=== PATIENT | male | born 1975 | race Caucasian/White ===

== ENCOUNTER 2022-03-16 09:55 | Emergency (ER) | payer OTHER, SELFPAY ==
--- NOTE | ~2022-03-16 | MR_ITS ---
EXAMINATION: MR BRAIN WITHOUT CONTRAST CLINICAL INFORMATION: Visual changes. Question stroke. COMPARISON: Head CTA performed earlier today. TECHNIQUE: Multiplanar, multisequence imaging of the brain was performed without intravenous contrast. FINDINGS: There is no acute infarction, mass, hemorrhage, or extra-axial collection. The ventricles, sulci, and basilar cisterns are normal in size and configuration. There is a small chronic infarct within the left occipital lobe seen on series 5 image 03/27. The brain parenchyma signal otherwise appears normal. The orbital contents appear normal. No compressive orbital lesion is seen. The flow voids of the major intracranial arteries appear intact. The bones and extracranial soft tissues are unremarkable. Lobular mucosal thickening is seen within the left maxillary sinus. MR/MR head/brain wo con IMPRESSION: No acute infarct, mass lesion, intracranial hemorrhage, or evidence of hydrocephalus. 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
--- NOTE | ~2022-03-16 | CT_ITS ---
EXAMINATION: CT ANGIOGRAM NECK WITH CONTRAST CT ANGIOGRAM BRAIN WITH CONTRAST CLINICAL INFORMATION: Visual changes. COMPARISON: None. TECHNIQUE: Test bolus sequences followed by intravenous administration 70 mL of Omnipaque 350. Helical imaging was performed in the axial plane from the thoracic inlet to the skull vertex. Delayed postcontrast imaging of the head was also performed. The data was processed at the radiology ct technologist workstation for generation of MIP sequences. Angled MIPs and volume rendered reformatted images were also generated at an offline 3D workstation. Stenoses are assessed in accordance with NASCET criteria unless otherwise indicated. This CT examination was performed using dose optimization techniques as appropriate, variously including the following: *Automated exposure control *Adjustment of mA and/or kV according to patient size (this includes techniques or standardized protocols for targeted exams where dose is matched to indication/reason for exam; i.e. extremities or head) *Use of iterative reconstruction technique DLP: 2456 mGy-cm FINDINGS: Head CT: There is no intracranial hemorrhage, large acute infarction, or mass lesion. The ventricles are normal in size and configuration without evidence of hydrocephalus. No abnormal enhancement is seen on the postcontrast images. The dural venous sinuses are normally opacified. The visualized paranasal sinuses and mastoid air cells are clear. Neck CTA: There is a normal aortic arch with no significant stenosis of the great vessel origins. The common and internal carotid arteries are normal in course and caliber. Both vertebral arteries are widely patent throughout their extracranial cervical course. Head CTA: No large vessel occlusion is seen. The anterior and posterior circulations are patent. There is no stenosis or occlusion. No aneurysm is seen. Non-vascular findings: The cervical soft tissues are within normal limits. 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 No enlarged lymph nodes are seen. The cervical spine is intact. The upper lungs are clear. CT/CT angio head neck IMPRESSION: No acute infarction, hemorrhage, or mass effect. Major head and neck arteries are patent without stenosis or occlusion. This critical result was discussed with Raquel JOHNSON on 03/16/2022 5:38 PM, and it was ascertained that the content and urgency of the report was understood at the time of direct communication.
[2022-03-16 10:15] VITALS: BP 144/86; PULSE 60; RESP 16; TEMP 36.8; O2SAT 99; BMI 34.4
--- NOTE | 2022-03-16 15:00 | ED.EYEPROB ---
HPI - Eye Problem General Chief complaint: Eye Problems Stated complaint: L Eye Vision Problems Time Seen by Provider: 03/16/22 14:43 Source: patient Mode of arrival: ambulatory Limitations: no limitations History of Present Illness HPI Narrative: 46yoM c PMHx of Gilbert's disease who presents to the ED today with visual changes. He reports no problems up until this past Tuesday morning when he woke and noticed bilateral blurry vision and rotation of viewed images when he performs a left gaze. He reports this change in only when he looks to his left with both eyes and reports normal vision with unilateral eye gaze. He was seen at an urgent care today who referred him to an eye doctor affiliated with [facility]. He then went to the eye doctor who referred him here for CTA of head to r/o aneurysm and CVA. He denies any head injury, LOC, dizziness, lightheadedness, vision loss, eye trauma, hearing changes/loss, muscle weakness, recent illness, recent travel, past hx of CVA, past hx of vision problems. MD chief complaint: vision change Onset (ago): day(s) (3) Onset description: awoke with symptoms Duration: constant Location: left eye Mechanism: none Associated symptoms: none Treatments Prior to Arrival: none Related Data Allergies Allergy/AdvReac Type Severity Reaction Status Date / Time No Known Allergies Allergy Verified 03/16/22 14:44 Review of Systems Review of Systems: Constitutional : No fevers, no chills, No changes in activity, No lethargy, No recent prior head injury, No agitation, No increased fussiness ENT/Mouth : No Ear Pain, No Nasal discharge/drainage Eyes: + Vision changes, +blurry vision, No Eye Pain, No Swelling, No Redness, No Foreign Body, No Photophobia, no discharge, no drainage, no itching, no eyelid edema, no contact lens uses, no recent welding, no bleeding Cardiovascular : No Chest Pain, No SOB Respiratory : No Cough Gastrointestinal : No Nausea, No Vomiting, No abdominal Pain Genitourinary : No Dysuria, No Urinary Frequency, No Urinary Incontinence, No Urgency, No Flank Pain Musculoskeletal : No joint pain, No neck stiffness, No back pain/injury Skin : No lacerations Neuro : No unsteady gait, No Paresthesias, No Loss of Consciousness, No altered mental status, No dizziness, No Headache Denies past medical history of HIV, recent trauma, coagulopathy, recent spinal/ epidural procedure, new medication, URI symptoms, close contacts with similar symptoms, tick bite, or known CO2 exposure. Yes all other systems are reviewed and are negative [facility] Past Medical History Attestation statement: The following information was validated with the patient. Source: old records reviewed, obtained from family and nursing notes reviewed Social History Social History Advance Directives: No Physical Exam Vital Signs: Vital Signs: Last Vital Signs Temp 98.2 F 03/16/22 10:15 Pulse 59 03/16/22 16:16 Resp 18 03/16/22 16:16 BP 138/76 03/16/22 16:16 Pulse Ox 99 03/16/22 16:16 O2 Del Method 03/16/22 16:16 BMI result Body Mass Index 34.4 vital signs have been reviewed as normal and appeared to be correct. Blood pressure 144/86. Heart rate normal. Respiration rate normal. Temperature normal. Oxygen saturation normal. Appearance: Alert. Oriented X3. No acute distress. Head: Normal external exam. Normocephalic. Atraumatic. No Ocampo signs noted. No raccoon eyes noted Eyes: PERRLA. EOMI. Very mild horizontal nystagmus noted during left gaze. Conjunctiva are normal. Cornea are normal. Funduscopic exam within normal limits. Sclera normal. Eyelids normal. No papilledema noted. Anterior chamber normal. No photophobia noted. Visual acuity bilaterally 20/10. Visual acuity to right eye 20/10. Visual acuity to left eye 20/13. ENT: EAC normal. TM's Normal. Pharynx normal. Uvula midline. Moist mucous membranes. Neck: Normal inspection. Neck supple. FROM. No adenopathy. Thyroid Normal. No meningeal signs. No neck mass noted. CVS: Normal heart rate and rhythm. Heart sound normal. No murmurs noted. Pulses normal throughout. Respiratory: No respiratory distress. Painless inspiration. Breath sounds normal. Back: Full range of motion noted. Skin: Skin warm and dry. Normal skin color. Normal skin turgor. No rashes/lesions/lacerations noted. Extremities: No lower extremity edema. Extremities exhibit normal range of motion. Extremities nontender. Neuro: Oriented X 3. No motor deficit. No sensory deficit. Reflexes normal. Moving all extremities. No focal motor deficits. Cranial nerves II-XI intact bilaterally. Facial strength normal. Normal cognition. Speech normal. Gait normal. Strength 5/5 throughout. No pronator drift. No tremor noted. No fasciculations noted. No rigidity noted. Muscle tone normal throughout. No asterixis noted. Nwgwzk-oz-vupv test normal. Heel to harmon test normal. Tandem gait normal. Does not sway with eyes open. Romberg test negative. Rapid alternating movement upper extremity normal. Rapid alternating movement lower extremity normal. Hand drop from overhead Misses face. NIHSS score 0. Course Course Course Narrative: 14:45pm - 46yoM c PMHx of Gilbert's disease who is presents to the ED today with visual changes that started Tuesday. Very mild horizontal nystagmus noted during left gaze, otherwise neuro exam unremarkable. Vision acuity and mcwilliams WNL. At this time patient has non disabling symptoms and his symptoms started on Tuesday 3 days ago. Not a tPA candidate Plan: Labs, CT head and CTA head/neck ordered to r/o CVA, ocular involvement. Then re-evaluate. Reevaluation(s) Reevaluation #1: - labs reviewed and patient's total bilirubin 3.0. AST 39. ALT 64. He reports that this is chronic for him due to his Gilbert's disease. - therefore I discussed this case with Neurology they reported that the patient most likely will need an MRI. I tried to call Dr. Vargas the cutter operator helper although I did not get an answer. - therefore I ordered an MRI at this time. - Sign out to JOYA Sanchez pending MRI of Brain. Time: 18:50 Medications Administered Discontinued Medications Generic Name Dose Route Start Last Admin Trade Name Freq PRN Reason Stop Dose Admin Iohexol 100 ml 03/16/22 17:07 03/16/22 17:07 Iohexol 350 Mg/Ml 100 Ml Infus..Btl IV 03/16/22 17:08 70 ml ONCE ONE Administration MDM - Eye Problem Medical Records Attestation: I reviewed the patient's medical records. Lab Data Attestation: I reviewed the patient's lab results. Result diagrams: 03/16/22 15:21 03/16/22 15:21 Labs: Lab Results 03/16/22 03/16/22 03/16/22 Range/Units 15:10 15:21 15:21 WBC 8.1 (4.8-10.8) X10*3/uL RBC 6.07 H (4.60-5.80) X10*6/uL Hgb 16.7 (14.0-18.0) g/dl Hct 50.3 (42.0-52.0) % MCV 82.9 (80.0-98.0) fL MCH 27.5 (27.0-33.0) pg MCHC 33.2 (31.0-36.0) g/dl RDW 12.4 (11.0-16.0) % Plt Count 280 (160-400) X10*3/uL MPV 9.8 (9.4-12.4) fL Immature Gran % (Auto) 0.4 (0.0-0.4) % Neut % (Auto) 74.8 H (45-73) % Lymph % (Auto) 17.4 L (20-40) % Mcculloch % (Auto) 6.5 (2-11) % Eos % (Auto) 0.5 (0-4) % Baso % (Auto) 0.4 (0-2) % Lymph # (Auto) 1.4 (1.2-4.9) X10*3/uL Mcculloch # (Auto) 0.5 (0.1-1.2) X10*3/uL Eos # (Auto) 0.0 (0.0-0.4) X10*3/uL Baso # (Auto) 0.0 (0.0-0.2) X10*3/uL Abs Immat Gran (auto) 0.03 (0.00-0.03) X10*3/uL Absolute Neuts (auto) 6.1 (2.0-8.3) x10*3/uL Absolute Nucleated RBC 0.000 (0.0-0.012) X10*3/uL Nucleated RBC % (auto) 0.0 (0.0-0.2) /100WBC PT 11.6 (10.0-13.1) SEC INR 1.0 (0.9-1.1) Sodium 142 (135-145) mmol/L Potassium 4.1 (3.3-5.1) mmol/L Chloride 105 (96-108) mmol/L Carbon Dioxide 26 (22-29) mmol/L Anion Gap 15 (12-20) BUN 9 (9-16) mg/dL Creatinine 1.04 (0.5-1.4) mg/dL Estim Creat Clear Calc 124.2 Estimated GFR > 60 Random Glucose 99 (60-115) mg/dL Calcium 10.0 (8.4-10.2) mg/dL Magnesium 2.1 (1.6-2.6) mg/dL Total Bilirubin 3.0 H (0.0-1.0) mg/dL AST 39 H (5-37) U/L ALT 64 H (0-40) U/L Alkaline Phosphatase 45 (39-117) U/L Total Protein 7.6 (6.5-8.0) g/dL Albumin 4.7 (3.5-5.0) g/dL Imaging Data CTA of head and neck: Attestation: I personally reviewed and interpreted this imaging study as follows: Radiologist's impression: FINDINGS: Head CT: There is no intracranial hemorrhage, large acute infarction, or mass lesion. The ventricles are normal in size and configuration without evidence of hydrocephalus. No abnormal enhancement is seen on the postcontrast images. The dural venous sinuses are normally opacified. ? The visualized paranasal sinuses and mastoid air cells are clear. Neck CTA: There is a normal aortic arch with no significant stenosis of the great vessel origins. The common and internal carotid arteries are normal in course and caliber. Both vertebral arteries are widely patent throughout their extracranial cervical course. Head CTA: No large vessel occlusion is seen. The anterior and posterior circulations are patent. There is no stenosis or occlusion. No aneurysm is seen. Non-vascular findings: The cervical soft tissues are within normal limits. 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 No enlarged lymph nodes are seen. The cervical spine is intact. The upper lungs are clear. CT/CT angio head neck IMPRESSION: No acute infarction, hemorrhage, or mass effect. Major head and neck arteries are patent without stenosis or occlusion. This critical result was discussed with Raquel JOHNSON on 03/16/2022 5:38 PM, and it was ascertained that the content and urgency of the report was understood at the time of direct communication. Critical Care Time Critical Care Time Critical Care Time: Yes Total Critical Care Time: 60 Attestation: I personally attest to this time spent taking care of the patient Discharge Plan Discharge Clinical Impression: Vision changes Patient Disposition: Still a Patient Instructions: Blurred Vision (ED) Referrals: Abdiaziz Vargas [Physician] - 1 day (as scheduled ) Troy Wood MD [Primary Care Provider] - 1 day
[2022-03-16 15:27] LABS: MANUAL DIFF FLAG NO
[2022-03-16 15:28] LABS: Basophils Percent Auto 0.4 % (0-2); Eosinophils Percent Auto 0.5 % (0-4); Hematocrit 50.3 % (42.0-52.0); Hemoglobin 16.7 g/dl (14.0-18.0); Imm Gran Abs Auto 0.03 X10*3/uL (0.00-0.03); Imm Gran Pct Auto 0.4 % (0.0-0.4); Lymphocytes Absolute Auto 1.4 X10*3/uL (1.2-4.9); Lymphocytes Percent Auto 17.4 % (20-40); Mean Corpuscular HGB Conc 33.2 g/dl (31.0-36.0); Mean Corpuscular Hemoglobin 27.5 pg (27.0-33.0); Mean Corpuscular Volume 82.9 fL (80.0-98.0); Mean Platelet Volume 9.8 fL (9.4-12.4); Monocytes Absolute Auto 0.5 X10*3/uL (0.1-1.2); Monocytes Percent Auto 6.5 % (2-11); Neutrophils Absolute Auto 6.1 x10*3/uL (2.0-8.3); Neutrophils Percent Auto 74.8 % (45-73); Platelet Count 280 X10*3/uL (160-400); Red Blood Count 6.07 X10*6/uL (4.60-5.80); Red Cell Distribution Width 12.4 % (11.0-16.0); White Blood Count 8.1 X10*3/uL (4.8-10.8)
[2022-03-16 15:29] LABS: Prothrombin Time 11.6 SEC (10.0-13.1)
[2022-03-16 15:45] LABS: Alanine Aminotransferase 64 U/L (0-40); Albumin Level 4.7 g/dL (3.5-5.0); Alkaline Phosphatase 45 U/L (39-117); Anion Gap 15 (12-20); Aspartate Amino Transferase 39 U/L (5-37); Blood Urea Nitrogen 9 mg/dL (9-16); Carbon Dioxide 26 mmol/L (22-29); Chloride 105 mmol/L (96-108); Creatinine Clr Calc Pharmacy 124.2; Estimated Glomerular Filt Rate > 60; Glucose Random 99 mg/dL (60-115); Magnesium 2.1 mg/dL (1.6-2.6); Potassium 4.1 mmol/L (3.3-5.1); Sodium 142 mmol/L (135-145); Total Protein 7.6 g/dL (6.5-8.0)
[2022-03-16 16:16] VITALS: BP 138/76; PULSE 59; RESP 18; O2SAT 99
[2022-03-16] MEDS: iohexoL 350 MG/ML 100 ML INFUS..BTL IV (17:07)
== END 2022-03-16 21:15 | disposition home or self-care (01) ==
PROVIDERS: Physician Assistant Medical; Emergency Provider Emergency Medicine Emergency Medical Services; PCP Internal Medicine
DX: H53.8 Other visual disturbances (principal); R42 Dizziness and giddiness; R51.9 Headache, unspecified; Z79.899 Other long term (current) drug therapy
CPT/HCPCS: 36415; 70496; 70498; 70551; 80053; 83735; 85025; 85610; 99284; 99285; Q9967

== ENCOUNTER 2022-03-17 15:34 | Outpatient (REF) | payer OTHER, SELFPAY ==
[2022-03-23 16:35] LABS: Acetylcholine Recep Modulating 16
[2022-03-23 19:02] LABS: Acetylcholine Receptor Binding <0.30 nmol/L
[2022-03-26 15:17] LABS: Acetylcholine Recept. Blocking <15 (<15)
== END 2022-03-17 15:35 | disposition home or self-care (01) ==
LOC: HO.LAB 15:34
PROVIDERS: PCP Internal Medicine; Visit Provider Psychiatry & Neurology Neurology
DX: H53.2 Diplopia (principal)
CPT/HCPCS: 36415; 83519

== ENCOUNTER 2025-03-09 10:20 | Emergency (ER) | payer OTHER, SELFPAY ==
--- NOTE | ~2025-03-09 | XR_ITS ---
CLINICAL HISTORY: pain after lifting a heavy object 3 views right elbow Comparison: None Findings: No fractures, subluxations or dislocations. Fat pads are nondisplaced. Minimal spurring medial humeral epicondyle Bone mineralization and soft tissues within normal limits. No radiopaque foreign body. Impression: 1. No fractures, subluxations, dislocations or evidence of joint effusion right elbow. This document has been electronically signed by: Igor Mckeon MD on 03/09/2025 11:13:28
[2025-03-09 10:28] VITALS: BP 123/83; PULSE 77; RESP 18; TEMP 36.9; O2SAT 95; BMI 33.4
[2025-03-09 10:29] VITALS: PULSE 76; O2SAT 97
--- OUTSIDE RECORDS SUMMARY | 2025-03-09 10:43 | XMS_ITS | Clinical Summary ---
Author Organization [facility] Address [address] [place] [address] Phone Care Team Providers Care Film Splicer Name Role Phone Troy Wood MD Primary Care Provider [phone] Allergies No known active allergies Medications ibuprofen (ADVIL,MOTRIN) 600 mg tablet Take 1 tablet (600 mg total) by mouth 3 (three) times a day. 60 each 04/06/2024 Active oxyCODONE (OXY-IR) 5 mg immediate release capsule Take 1 capsule (5 mg total) by mouth every 6 (six) hours if needed for severe pain. 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 Abdiaziz Mobley. Pt referred to neurology for suspected stroke. Note to our office to check homocystine hypertension, viscosity, collagen vascular disease Gilbert syndrome 08/01/2009 Immunizations Immunization Administration Dates Next Due Td Tetanus diptheria (Tdvax) 7yo and older 09/24 Td, Unspecified 09/24/2004 Tdap Tetanus diptheria acell ular pertussis (Boostrix; Adacel) 7yo and older 07/06/2022,01/12/2011 Surgical History Surgery Date Site/Laterality Comments TONSILLECTOMY PROCEDURE: HISTORICAL TONSILLECTOMY VASECTOMY PROCEDURE: DE VASECTOMY UNI/BI SPX W/POSTOP SEMEN EXAMS; COMMENT: june, WISDOM TOOTH EXTRACTION Medical History Medical History Date Comments 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; COMMENT: asymptomatic unconjugated hyperbilirubinemia Family History Relation Name Status Comments Brother Alive Healthy Daughter Alive x2 - Healthy Father Alive Healthy Mother Alive Hypothyroidism Sister Alive x2 - Healthy Social History Tobacco Use Types Packs/Day Years Used Date Smoking Tobacco: Never Smokeless Tobacco: Never Tobacco Cessation:Counseling Given: Not Answered Alcohol Use Standard Drinks/Week Comments Yes 0 (1 standard drink = 0.6 oz pur e alcohol) Interpersonal Safety Answer Date Record ed Physical Abuse Unrecognized value 04/06/2024 Verbal Abuse Unrecognized value 04/06/2024 Sex and Gender Information Value Date Recorded Sex Assigned at Male 04/06/2024 11:21 AM EST Legal Sex Male 3:26 PM EST Gender Identity Male 04/06/2024 11:21 AM EST Sexual Orientation Straight 04/06/2024 11 :21 AM EST Obstetrics History Last Filed Vital Signs Vital Sign Reading Time Taken Comments Blood Pressure 122/72 05/29/2024 2:43 PM EST Pulse 67 05/29/2024 2:43 PM EST Temperature 36.4 C (97.5 F) 04/23/2024 9:53 AM EST Respiratory Rate 18 04/06/2024 4:19 PM EST Oxygen Saturation 98% 04/06/2024 4:19 PM EST Inhaled Oxygen Concentration - - Weight 123 kg (271 lb 12.8 oz) 05/29/2024 2:43 P M EST Height 188 cm (6' 2 ) 05/29/2024 2:43 PM EST Body Mass Index 34.9 05/29/2024 2:43 PM EST Plan of Treatment Upcoming Encounters Date Type Department Care Team (Late st Contact Info) Description 06/27/2025 9:00 AM EST Office Visit Adult Medicine [facility] [address], [place] [phone] Troy Wood MD [address] [place] [address] Health Maintenance Due Date Last Done Comments Colorectal Cancer Screening: Colonoscopy 1976 Hepatitis B Vaccines (1 of 3 - 19+ 3-dose series) 08/07/1995 HIV Screening 07/25/2022 Social Influencers of Health Screening 07/25/2022 Depression Screening 05/02/2024 COVID-19 Vaccine ( - 2023- season) 2024 Influenza Vaccine (#1) 2024 Cholesterol Screening (Lipid Panel) 01/31/2029 02/01/2024, 02/01/2024 DTaP,Tdap,and Td Vaccines (5 - Td or Tdap) 07/06/2032 07/06/2022, 01/12/2011, 09/24/2004, Additional history exists RSV Immunization Adult Patients (1 - 1-dose 75+ series) 08/07/2051 Hepatitis C Screening Completed 07/08/2022 HIB Vaccines Aged Out No longer eligi ble based on patient's age to complete this topic HPV Vaccines Aged Out No longer eligi ble based on patient's age to complete this topic Hepatitis A Vaccines Aged Out No long er eligible based on patient's age to complete this topic IPV Vaccines Aged Out No longer eligi ble based on patient's age to complete this topic MMR Vaccines Aged Out No longer eligi ble based on patient's age to complete this topic Meningococcal ACWY Vaccine Aged Out N o longer eligible based on patient's age to complete this topic Meningococcal B Vaccine Aged Out No l onger eligible based on patient's age to complete this topic Pneumococcal Vaccine: Pediatrics (0 to 5 Years) and At-Risk Patients (6 to 49 Years) Aged Out No longer eligible based on patient's age to complete this topic RSV Immunization Patients Under 20 months Aged Out No longer eligible based on patient's age to complete this topic Varicella Vaccines Aged Out No longer eligible based on patient's age to complete this topic Procedures Procedure Name Priority Date/Time Associated Diagnosis Comments LIPID PANEL Routine 02/01/2024 HEPATITIS C SCREENING Routine 07/08/2022 from Last 3 Months or Most Recently Relevant to Health Maintenance Results * Lipid panel (02/01/2024) LDL/HDL Ratio 3 0 - 4 Triglycerides 93 0 - 150 mg/dL Cholesterol 172 0 - 200 mg/dL HDL 58 >=40 mg/dL LDL Cholesterol 96 0 - 100 mg/dL Blood Venous blood specimen / Unknown Historical Provider LAB BLOOD ORDERABLES Lucy l Result * Hepatitis C Screening (07/08/2022) Hepatitis C Screening abstracted Historical Provider HEALTH MAINTENANCE Final Result from Last 3 Months or Most Recently Relevant to Health Maintenance Insurance [phone] (Work) [address] [place] [id number] [employer] [facility] [employer] Care Teams Film Splicer Relationship Specialty Start Date End Date Troy Wood MD [address] [facility] [place] [id number] PCP - General 03/01/1999
--- OUTSIDE RECORDS SUMMARY | 2025-03-09 10:43 | XMS_ITS ---
Author Name [facility] Organization Unknown Care Team Organization Name Specialty Phone Email Start Date End Da te [facility] Parag Card Primary Care 09/06/202212/18
--- NOTE | 2025-03-09 11:23 | ED_ITS ---
HPI - Extremity Problem General Chief complaint: Extremity Injury, Upper Stated complaint: R ELBOW INJURY Time Seen by Provider: 03/09/25 10:29 Source: patient, EMS and RN notes reviewed Mode of arrival: EMS Limitations: no limitations History of Present Illness ED Provider: JOYA Lan HPI Narrative: 49-year-old male without significant medical history presents to the ED due to right elbow pain. Patient states he was at work when he was pulling a heavy metal fan off of a truck when he felt a sudden sharp stabbing pain to the lateral side of the right elbow, with numbness and tingling of the 4th and 5th thing fingers that lasted a few minutes before resolving. Patient states after the injury, he tried to grab his walker pants and boots from his truck but felt pain and weakness of the lateral side of the elbow when doing so. Patient states he took 2 Aleve after the injury without effect. Related Data Previous Rx's ?Medication ?Instructions ?Recorded aspirin 81 mg capsule 81 mg PO DAILY 14 days #14 c aps 03/16/22 Allergies Allergy/AdvReac Type Severity Reaction Status Date / Time No Known Allergies Allergy Verified 03/09/25 10:31 Review of Systems Review of Systems: CONST: Negative for fever, body aches and chills. HENT: Negative for neck pain/stiffness, headache, congestion, sore throat, swelling. EYES: Negative for discharge/pain or vision changes. RESP: Negative for cough/hemoptysis and shortness of breath. CV: Negative chest pain, difficulty breathing, palpitations. ABD: Negative pain, nausea, vomiting. : Negative increase frequency, dysuria, blood in urine or stool. MUSC: Negative for muscle aches, edema. POS R elbow pain SKIN: Negative rash, lesions/sores. NEURO: Negative headache, dizziness, weakness. Yes all other systems are reviewed and are negative Physical Exam Vital Signs: Vital Signs: Last Vital Signs Temp 98.5 F 03/09/25 12:23 Pulse 77 03/09/25 12:23 Resp 18 03/09/25 12:23 BP 123/83 03/09/25 12:23 Pulse Ox 95 03/09/25 12:23 O2 Del Method Room Air 03/09/25 12:23 BMI result Body Mass Index 33.4 GENERAL APPEARANCE: ?AxOx4, generally well-appearing, no acute distress. HEENT: ?NC, AT. MMM. EOMI, clear conjunctiva, oropharynx clear. NECK: ?Supple without lymphadenopathy.? No stiffness or restricted ROM. HEART:? Normal rate and regular rhythm, normal S1/S2, no m/r/g LUNGS:? CTAB, moving air well. No crackles or wheezes are heard. EXTREMITIES: ?Without cyanosis, clubbing or edema. R elbow TTP of the radial aspect, radial pulses 2+, full ROM intact, patient able to fully flex and extend the wrist and elbow, opposition intact, SILT, compartments soft, no ecchymosis or overlying skin changes, no rashes, strength 5/5 NEUROLOGICAL: ?Grossly nonfocal. Alert and oriented, moving all 4 extremities. Observed to ambulate with normal gait. Skin: ?Warm and dry without any rash. Medications Administered Discontinued Medications Generic Name Dose Route Start Last Admin Trade Name Freq PRN Reason Stop Dose Admin Acetaminophen 975 mg 03/09/25 11:51 03/09/25 12:12 Acetaminophen 325 Mg Tablet PO 03/09/25 11:52 975 mg ONCE ONE Administration Medical Decision Making Medical Decision Making MDM Narrative: 49-year-old male without significant medical history presents to the ED due to right elbow pain. Patient states he was at work when he was pulling a heavy metal fan off of a truck when he felt a sudden sharp stabbing pain to the lateral side of the right elbow, with numbness and tingling of the 4th and 5th fingers that lasted a few minutes before resolving. Patient states after the injury, he tried to grab his walker pants and boots from his truck but felt pain and weakness of the lateral side of the elbow when doing so. Patient states he took 2 Aleve after the injury without effect. VS on initial observation-BP 123/83, pulse rate is 77, respiratory rate of 18, afebrile with oral temp of 98.5?, O2 saturation 95% on room air. On physical exam R elbow TTP of the lateral aspect, radial pulses 2+, full ROM intact, patient able to fully flex and extend the wrist and elbow, opposition intact, SILT, compartments soft, no ecchymosis or overlying skin changes, no rashes, strength 5/5, neurologically intact, no evidence of wrist drop. XR R elbow negative for fracture, dislocation or large joint effusion. Full ROM intact including opposition, flexion, extension of wrist and elbow, SILT, radial pulses 2+, appropriate capillary refill time, numbness and tingling has resolved, no evidence of wrist drop. Patient was medicated with 975 mg p.o. Tylenol, and Kodak bandage applied onto the right elbow. I counseled patient PARK treatment and placed referral to orthopedics for further evaluation and management if pain continues. I also counseled patient to follow up with his primary care provider and on strict return precautions. Patient in agreement with the plan. Differential Diagnosis Differential Diagnoses: The differential diagnosis associated with the presentation includes Compartment syndrome Olecranon fracture Radial head fracture Ulnar nerve injury Admission/Observation Consideration of admission/observation: Escalation of care including admission/observation considered Independent Interpretation I performed an independent interpretation of an: Plain X-Ray Interpretation: I independently interpreted the XR R elbow which was negative for fracture, dislocation or large joint effusion, I agree with the radiologist's interpretation Radiology Impression Discussion of test interpretation with radiology: I have reviewed the radiologist's reading. Radiologist Impression: XR R elbow Findings: No fractures, subluxations or dislocations. Fat pads are nondisplaced. Minimal spurring medial humeral epicondyle Bone mineralization and soft tissues within normal limits. No radiopaque foreign body. Impression: 1. No fractures, subluxations, dislocations or evidence of joint effusion right elbow. This document has been electronically signed by: Igor Mckeon MD on 03/09/2025 11:13:28 Dictated By: Igor Mckeon MD Signed By: <Electronically signed by Igor Mckeon MD in OV> 03/09/25 1114 External Record Review External record reviewed: Inpatient record, Office record and Outpatient record Chronic Conditions Patient?s care impacted by: Other (No known medical history) Discharge Plan Discharge Clinical Impression: Injury of elbow, right Patient Disposition: Home, Self-Care Additional Instructions: You were evaluated in the ED due to right elbow pain after lifting a heavy object at work. The x-ray was negative for fracture, dislocation or joint effusion. Your physical exam was reassuring as you had full range of motion, and full sensation intact. You were medicated with 975 mg of Tylenol for pain management. You manage pain at home, please take 500 mg of Tylenol, and 400 mg of ibuprofen consistently every 6 hours, ice the affected area, apply compression wrap and elevate the limb. I have placed a referral to orthopedics for you, please call their office Tuesday morning if you are still experiencing pain. I also recommend you follow up with your primary care doctor to ensure resolution of your pain. Please return to the emergency department if you experience worsening pain, decreased sensation, tightness of the limb, difficulty moving the limb, or any new/worsening/concerning symptoms. Prescriptions: No Action aspirin 81 mg capsule 81 mg PO DAILY 14 Days Qty: 14 0RF Referrals: [facility] [Provider Group] Stand Alone Forms: Work/School Release Interventions: ED Discharge Assessment Last Done: 03/09/25 12:23 Discharge Date/Time: 03/09/25 12:24 Print Language: Moldovan
[2025-03-09 12:23] VITALS: BP 123/83; PULSE 77; RESP 18; TEMP 36.9; O2SAT 95
== END 2025-03-09 12:24 | disposition home or self-care (01) ==
PROVIDERS: Emergency Provider Emergency Medicine Emergency Medical Services; PCP Internal Medicine
DX: S59.901A Unspecified injury of right elbow, initial encounter (principal); X50.0XXA Overexertion from strenuous movement or load, initial encounter; Y93.9 Activity, unspecified; Y92.89 Other specified places as the place of occurrence of the external cause; Y99.0 Civilian activity done for income or pay
CPT/HCPCS: 73080; 99283; 99284

== ENCOUNTER → 2025-03-09 10:45 | Outpatient (BNV) | payer OTHER, SELFPAY | PROVIDERS: Emergency Provider Emergency Medicine Emergency Medical Services; PCP Internal Medicine; Visit Provider Radiology Diagnostic Radiology | DX: M25.521 Pain in right elbow (principal) | CPT/HCPCS: 73080 ==

== ENCOUNTER 2025-03-25 10:53 | Outpatient (AMB) | payer OTHER, SELFPAY ==
--- NOTE | 2025-03-25 10:58 | A.OFFVIS_ITS ---
Vital Signs 03/25/25 11:04 Height 6 ft 2 in Weight 260 lb BMI 33.4 Intake Visit Reasons: [facility] ER F/Up Right Distal Bicep tendon rupture Intake Note: Rashad is a right hand dominant male who presents today as a [facility] ER follow up, right Distal bicep tendon rupture, 03/09/25 WC. At their ER visit on 03/09/25 he stated that he was at work when he was pulling a heavy metal fan off of a truck when he felt a sudden sharp stabbing pain to the lateral side of the right elbow, with numbness and tingling of the 4th and 5th thing fingers that lasted a few minutes before resolving. At today's visit he states that the pain level is still the same as day one. 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 He states no numbness or tingling since the day of the injury. Allergies No Known Allergies Allergy (Verified 03/09/25 10:31) HPI HPI [facility] ER F/Up Right Distal Bicep tendon rupture: Details: Mr. Copeland is a 49-year-old right hand dominant male who presents to the office today for evaluation of a right elbow injury that occurred at work on 03/09/2025. He states that he was pulling a heavy metal fan off of a truck when he had to lift the object locked over a lip. He felt immediate lateral right elbow pain accompanied by numbness and tingling in the right little and ring fingers. The patient reports that the numbness and tingling has happened on roughly 2 occasions after the incident but has been improving. He continues to have elbow pain and weakness. 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 No ecchymosis, erythema, or edema. No tenderness to palpation over the olecranon. Slight tenderness to palpation over both the medial and lateral epicondyles. Able to perform full pronation, supination, extension and flexion. 5/5 strength with resisted wrist extension and flexion. Lateral epicondyle pain with resisted wrist extension. NVI. Psych Appearance: grossly normal Mental Status: mental status grossly normal Attitude: cooperative Assessment & Plan Assessment & Plan (1) Strain of right elbow and forearm: Code(s): S56.911A - Strain of unspecified muscles, fascia and tendons at forearm level, right arm, initial encounter Category: Medical Plan Mr. Copeland is a 49-year-old right hand dominant male who presents to the office today for evaluation of a right elbow injury that occurred at work on 03/09/2025. He states that he was pulling a heavy metal fan off of a truck when he had to lift the object locked over a lip. He felt immediate lateral right elbow pain accompanied by numbness and tingling in the right little and ring fin gers. The patient reports that the numbness and tingling has happened on roughly 2 occasions after the incident but has been improving. He continues to have elbow pain and weakness. While in the office today, we discussed the role of MRI imaging to further evaluate the integrity of the right elbow and surrounding structures. I have placed an order for this today. Additionally, I placed an order for occupational therapy to work on elbow range of motion and gentle strengthening. 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 He will follow up after the MRI is obtained, sooner if needed. Orders: Orders elbow RT wo con Today S56.911A - Strain of unspecified muscles, fascia and tendons at forearm level, right arm, initial encounter Medications: Discontinued aspirin Discontinued Reason: Patient no longer taking 81 mg PO DAILY 14 days 14 caps 0RF Coding Level of Care Code New Pt Level 3 (28627) Diagnoses Strain of right elbow and forearm S56.911A
[2025-03-25 11:04] VITALS: BMI 33.4
--- OUTSIDE RECORDS SUMMARY | 2025-03-25 13:52 | XMS_ITS | Clinical Summary ---
Author Organization [address] [facility] Address [address] [place] [address] Phone Care Team Providers Care Set Staff Fitter Name Role Phone Troy Wood MD Primary Care Provider [phone] Allergies No known active allergies Medications ibuprofen [...] Comments TONSILLECTOMY PROCEDURE: HISTORICAL TONSILLECTOMY VASECTOMY PROCEDURE: VT VASECTOMY UNI/BI SPX W/POSTOP SEMEN EXAMS; COMMENT: [...] 9:00 AM EST Office Visit Adult Medicine [facility] [address], [place] [phone] Troy Wood MD [address] [place] [address] Health Maintenance Due Date Last Done Comments Colorectal Cancer Screening: Colonoscopy 1976 Hepatitis B Vaccines (1 of 3 - 19+ 3-dose series) 08/07/1995 HIV Screening 07/25/2022 Social Influencers of Health Screening 07/25/2022 Depression Screening 05/02/2024 COVID-19 Vaccine ( - season) 2024 Influenza Vaccine (#1) 2024 Cholesterol [...] Procedure Name Priority Date/Time Associated Diagnosis Comments EXTERNAL XRAY REPORT 03/09/2025 EXTERNAL XRAY REPORT 03/09/2025 LIPID PANEL Routine 02/01/2024 HEPATITIS C SCREENING Routine 07/08/2022 from Last 3 Months or Most Recently Relevant to Health Maintenance Results * External Xray Report (03/09/2025) Only the most recent of2 resultswithin the time period is included. Anatomical Region Laterality Modality Radiographic Daisy ging us Provider [facility] XR PROCEDURES Final Result * Lipid panel (02/01/2024) LDL/HDL Ratio 3 0 - 4 Triglycerides 93 0 - 150 mg/dL Cholesterol 172 0 - 200 mg/dL HDL 58 >=40 mg/dL LDL Cholesterol 96 0 - 100 mg/dL Blood Venous blood specimen / Unknown us Historical Provider LAB BLOOD ORDERABLES Lucy l Result * Hepatitis C Screening (07/08/2022) Hepatitis C Screening abstracted Historical Provider HEALTH MAINTENANCE Final Result from Last 3 Months or Most Recently Relevant to Health Maintenance Insurance [employer] Care Teams Set Staff Fitter Relationship Specialty Start Date End Date Troy Wood MD [address] [place] [address] PCP - General 03/01/1999
== END 2025-03-25 11:42 | disposition home or self-care (01) ==
LOC: HO.HOS 10:54
PROVIDERS: PCP Internal Medicine; Visit Provider Physician Assistant
DX: S56.911A Strain of unspecified muscles, fascia and tendons at forearm level, right arm, initial encounter (principal)
CPT/HCPCS: 99203

== ENCOUNTER → 2025-03-25 10:53 | Outpatient (BNVA) | payer OTHER, SELFPAY | PROVIDERS: PCP Internal Medicine; Visit Provider Physician Assistant | DX: Z09 Encounter for follow-up examination after completed treatment for conditions other than malignant neoplasm (principal); S56.911A Strain of unspecified muscles, fascia and tendons at forearm level, right arm, initial encounter; R20.0 Anesthesia of skin; R20.2 Paresthesia of skin | CPT/HCPCS: 99202 ==

== ENCOUNTER → 2025-04-18 18:39 | Outpatient (BNV) | payer OTHER, SELFPAY | PROVIDERS: PCP Internal Medicine; Visit Provider Radiology Diagnostic Radiology | DX: M77.11 Lateral epicondylitis, right elbow (principal) | CPT/HCPCS: 73221 ==

== ENCOUNTER 2025-04-18 18:42 | Outpatient (REF) | payer OTHER, SELFPAY ==
--- NOTE | ~2025-04-18 | MR_ITS ---
CLINICAL HISTORY: S56.911A - Strain of unspecified muscles, fascia and tendons at forearm ... MR right elbow without gadolinium Comparison: CR - XR ELBOW RT MIN 3V - 03/09/25 10:46 EST Findings: No fractures. No pathologic bone lesions. No effusion. Medial and lateral collateral ligaments intact. Biceps, brachialis, triceps, common flexor and common extensor tendons intact. Normal ulnar nerve. Edema overlying the lateral epicondyle, origin of the extensor musculature. IMPRESSION: 1. Lateral epicondylitis. This document has been electronically signed by: Jose Stover MD on 04/18/2025 20:09:10
--- OUTSIDE RECORDS SUMMARY | 2025-04-18 19:59 | XMS_ITS | Clinical Summary ---
Author Organization [address] [facility] Address [address] [place] [address] Phone Care Team Providers Care Manager Integration Name Role Phone Troy Wood MD Primary Care Provider [phone] Allergies No known active allergies Medications ibuprofen [...] Comments TONSILLECTOMY PROCEDURE: HISTORICAL TONSILLECTOMY VASECTOMY PROCEDURE: ME VASECTOMY UNI/BI SPX W/POSTOP SEMEN EXAMS; COMMENT: [...] Orientation Straight 04/06/2024 11 :21 AM EST Last Filed Vital Signs Vital Sign Reading [...] Adult Medicine [facility] [address] [place], [place] [phone] Troy Wood MD [address] [place], [place] Health Maintenance Due Date Last Done Comments [...] Recently Relevant to Health Maintenance Insurance [employer] [facility] Care Teams Manager Integration Relationship Specialty Start Date End Date Troy Wood MD [address] [place] [id number] PCP - General 03/01/1999
== END 2025-04-18 18:43 | disposition home or self-care (01) ==
LOC: HO.MRI 18:42
PROVIDERS: PCP Internal Medicine; Visit Provider Physician Assistant
DX: S56.911A Strain of unspecified muscles, fascia and tendons at forearm level, right arm, initial encounter (principal); X58.XXXA Exposure to other specified factors, initial encounter
CPT/HCPCS: 73221